=== PATIENT | male | born 1980 | race Caucasian/White ===

== ENCOUNTER 2024-12-23 18:17 | Emergency (ER) | payer BC, SELFPAY ==
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
--- OUTSIDE RECORDS SUMMARY | 2024-12-23 18:19 | XMS_ITS | Patient Health Record ---
Author Organization [facility] Address [address] [place] [address] Care Team Providers Care Repairer Switchgear Name Role Phone Elvis Becker MD Primary Care Provider Unavailab Eliel Tapia Unavailable [phone] Reason For Referral No Information Plan Of Treatment No Information Insurance Providers Payer Name Payer Address Payer Phone Subscriber Number Group Number Insured Name Patient Relationship to Insured Coverage Start Date Coverage End Date Blue Access PPO [id number] [address] [place] [phone] [id number] Alan Clements Self - patient is the insured
--- OUTSIDE RECORDS SUMMARY | 2024-12-23 18:19 | XMS_ITS | Clinical Summary ---
Author Organization [facility] Address [address] [place] [address] Care Team Providers Care Retirement Consultant Name Role Phone Unknown, Provider Primary Care Provider Unavaila ble Source Comments [facility],non-owned Affiliates and Associated Physician Practices is amultiple site organization consisting of ambulatory clinics and hospital sitesin [place], [place], [place] and [place]. This disclosure is being madepursuant to the Care Everywhere program and may not contain all information available regarding this patient. Last updated 18.[facility] Allergies Active Allergy Reactions Criticality Noted Date Comments Codeine Vomiting 03/28/2022 Medications * Be aware that medications may not be up to date on this document. Alwaysverify current medications with the patient. Medication Sig Dispensed Refills Start Date End Date Status acetaminophen (TYLENOL) 500 MG capsule Take 1 (one) capsule by mouth every 6 hours as needed for Pain 60 capsule 03/28/2022 Active ibuprofen (MOTRIN) 600 MG tablet Take 1 (one) tablet by mouth every 6 hours as needed for Pain 30 tablet 03/28/2022 Active cyclobenzaprine (FLEXERIL) 10 MG tablet Take 1 (one) tablet by mouth nightly as needed for Muscle Spasms 15 tablet 03/28/2022 Active Active Problems No known active problems Social History Tobacco Use Types Packs/Day Years Used Date Smoking Tobacco: Former Smokeless Tobacco: Never Alcohol Use Standard Drinks/Week Comments Never 0 (1 standard drink = 0.6 oz pur e alcohol) AUDIT-C Answer Date Recorded Q1: How often do you have a drink containing alcohol? Never 03/28/2022 Q2: How many drinks containi ng alcohol do you have on a typical day when you are drinking? Patient does not drink Q3: How often do you have si x or more drinks on one occasion? 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 PIPELINE TECHNICIAN Height 177.8 cm (5' 10 ) 03/28/2022 1:59 PM CDT Body Mass Index 32.28 12/04/2016 12:50 PM PIPELINE TECHNICIAN Plan of Treatment Health Maintenance Due Date Last Done Comments COLOGUARD (AGES 45-75) - COL ON CA SCREENING 1978 COLON MONITORING 1978 COLONOSCOPY - COLON CA SCREENING 1978 CT COLONOGRAPHY - COLON CA SCREENING 1978 Colorectal Cancer Screening 1978 FIT - COLON CA SCREENING 1978 FLEX SIG - COLON CA SCREENING 1978 LIPID TESTING 1978 HIV SCREENING 1993 HEPATITIS C SCREENING 03/03/1996 DTAP/TDAP/TD VACCINES (1 - Tdap) 1997 HEPATITIS B VACCINE (1 of 3 - 19+ 3-dose series) 1997 COVID-19 VACCINE (2023-2 5 season) 2024 04/07/2021, 03/18/2021 INFLUENZA VACCINE (#1) 2024 DEPRESSION SCREENING 10/10/2024 ZOSTER VACCINE (1 of 2) 2028 HIB VACCINE Aged Out No longer eligi ble based on patient's age to complete this topic HPV VACCINE Aged Out No longer eligi ble based on patient's age to complete this topic MENINGOCOCCAL (Group B) VACCINE SHARED DECISION-MAKING Aged Out No longer eligible based on patient's age to complete this topic MENINGOCOCCAL GROUPS A/C/Y/W VACCINE Aged Out No longer eligible b ased on patient's age to complete this topic PNEUMOCOCCAL VACCINE Aged Out No long er eligible based on patient's age to complete this topic Care Teams Retirement Consultant Relationship Specialty Start Date End Date Unknown, Provider PCP - General 12/04/16
--- OUTSIDE RECORDS SUMMARY | 2024-12-23 18:19 | XMS_ITS | Referral Summary ---
Author Organization [facility] Address [address] [place] [address] Care Team Providers Care Integrated Marketing Manager Name Role Phone Unknown, Provider Primary Care Provider Unavaila ble Source Comments [facility],non-owned Affiliates and Associated Physician Practices is amultiple site organization consisting of ambulatory clinics and hospital sitesin [place], [place], [place] and [place]. This disclosure is being madepursuant to the Care Everywhere program and may not contain all information available regarding this patient. Last updated 18.[facility] Allergies Active Allergy Reactions Criticality Noted Date [...] 102.1 kg (225 lb) 12/04/2016 12:50 PM RECYCLER Height 177.8 cm (5' 10 ) 03/28/2022 1:59 PM CDT Body Mass Index 32.28 12/04/2016 12:50 PM RECYCLER Plan of Treatment Not on file Care Teams Integrated Marketing Manager Relationship Specialty Start Date End Date Unknown, Provider PCP - General 12/04/16
--- OUTSIDE RECORDS SUMMARY | 2024-12-23 18:19 | XMS_ITS | Clinical Summary ---
Author Organization [facility] Address [address] [place] [address] Phone Care Team Providers Care Structural Steel Equipment Erector Name Role Phone Asa Ferguson MD Primary Care Provider [phone] Allergies Active Allergy Reactions Criticality Noted Date Comments Codeine Nausea and Vomiting Low 04/30/2022 Medications oxyCODONE-acetam inophen (PERCOCET) 5-325 mg Oral tablet Take 2 Tabs by mouth every 4 hours as needed for Pain. 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 Gender Identity Not on file Sexual Orientation Not on file Last Filed Vital Signs Vital Sign Reading Time Taken Comments Blood Pressure 215/144 04/30/2022 6:03 PM CDT Pulse 82 04/30/2022 6:05 PM CDT Temperature 36.7 C (98.1 F) 04/30/2022 6:05 PM CDT Respiratory Rate 18 04/30/2022 6:05 PM CDT Oxygen Saturation 100% 04/30/2022 6:05 PM CDT Inhaled Oxygen Concentration - - Weight 103 kg (227 lb) 04/30/2022 2:05 PM CDT Height 180.3 cm (5' 11 ) 04/30/2022 2:05 PM CDT Body Mass Index 31.66 04/30/2022 2:05 PM CDT Plan of Treatment Health Maintenance Due Date Last Done Comments HEPATITIS B VACCINES (1 of 3 - 19+ 3-dose series) 1997 DTAP/TDAP/TD VACCINES (2 - T d or Tdap) 07/10/2014 07/10/2004 COLORECTAL SCREENING 2023 Colorectal Cancer Screening 2023 FIT-DNA Q 3 years 2023 FIT/FOBT Q 1 year 2023 Flex Sig/CT Colonography Q 5 years 2023 INFLUENZA VACCINE (#1) 2024 HPV VACCINES Aged Out No longer eligi ble based on patient's age to complete this topic PNEUMOCOCCAL VACCINE 0-49 YEARS Aged Out No longer eligible based on patient's age to complete this [place] [address] [facility] BLUE ACCESS/TRUE BLUE PPO Care Teams Structural Steel Equipment Erector Relationship Specialty Start Date End Date Asa Ferguson MD [address] [place] [phone] PCP - General Family Practice 04/30/22
--- OUTSIDE RECORDS SUMMARY | 2024-12-23 18:19 | XMS_ITS | Continuity of Care Document ---
Author Organization [facility] Address [address] [place] [address] [address] [place] [address] Phone Care Team Providers Care Supervisor Silvering Department Name Role Phone Vega PT,MPT,ATC, Can Unavailable Unavai lable Procedures Procedure Date Therapeutic Activities Therapeutic Exercise Neuromuscular Re-Ed Manual Therapy Therapeutic Activities Therapeutic Exercise Neuromuscular Re-Ed Manual Therapy Therapeutic Activities Therapeutic Exercise Neuromuscular Re-Ed Therapeutic Activities Neuromuscular Re-Ed Therapeutic Exercise Manual Therapy Therapeutic Activities Neuromuscular Re-Ed Manual Therapy Therapeutic Exercise Therapeutic Activities Therapeutic Exercise Neuromuscular Re-Ed Therapeutic Exercise Therapeutic Activities Neuromuscular Re-Ed Therapeutic Activities Therapeutic Exercise Neuromuscular Re-Ed Therapeutic Activities Neuromuscular Re-Ed Therapeutic Exercise Therapeutic Activities Therapeutic Exercise Neuromuscular Re-Ed Progress Note Therapeutic Exercise Neuromuscular Re-Ed Therapeutic Activities Therapeutic Activities Therapeutic Exercise Neuromuscular Re-Ed Neuromuscular Re-Ed Therapeutic Exercise Therapeutic Activities Therapeutic Activities Neuromuscular Re-Ed Manual Therapy Therapeutic Exercise Therapeutic Activities Manual Therapy Neuromuscular Re-Ed Therapeutic Exercise Therapeutic Exercise Therapeutic Activities Neuromuscular Re-Ed Neuromuscular Re-Ed Therapeutic Activities PT Evaluation High Complexity Therapeutic Exercise Advance Directives Directive Yes / No Effective Date File Name No Information Encounters Encounter Description Practice Location Reason(s) For Visit Diagnoses Date Provider Providers Copied on Encounter [facility] [facility], [place], [place], [id number], tel:[phone] Sharon No Information Sep-2 2 [facility] [place], [place], [place]. Referring Provider: Vineet Holloway, [address], [place], [address]. tel:[phone] [facility], [place], [place], [id number], tel:[phone] Sharon No Information Sep-2 2 Gary Leen. , [place], [place]. Referring Provider: Vineet Holloway, [address], [place], [address]. tel:[phone] [facility] [address], [place], [place], [id number], [place] tel:[phone] Sharon No Information Sep-2 2 Gary Leen. , [place], [place]. Referring Provider: Vineet Holloway, [address], [place], [address]. tel:[phone] [facility], [place], [place], [address], [place] tel:[phone] Sharon No Information Jun- 2 [facility] Can. , [place], [place]. Referring Provider: Vineet Holloway, [address], [place], [address]. tel:[phone] [facility], [place], [place], [id number], [place] tel:[phone] Sharon No Information Sep- 2 Vega Can. , [place], [place]. Referring Provider: Vineet Holloway, [address], [place], [address]. tel:[phone] [facility], [place], [place], [address], [place] tel:[phone] Sharon No Information Jun- 2 Gary Leen. , [place], [place]. Referring Provider: Vineet Holloway, [address], [place], [address]. tel:[phone] [facility], [place], [place], [address], [place] tel:[phone] Sharon No Information Jun-0 2 Juliophylliselle Murphy. . Referring Provider: Vineet Holloway [address], [place], [address]. tel:[phone] [facility], [place], [place], [id number], [place] tel:[phone] Sharon No Information 2 Gary Leen. , [place], [place]. Referring Provider: Vineet Holloway [address], [place], [address]. tel:[phone] [facility], [place], [place], [address], [place] tel:[phone] Sharon No Information 2 [facility] [place]. , [place], [place]. Referring Provider: Vineet Holloway, [address], [place], [address]. tel:[phone] [facility], [place], [place], [id number], [place] tel:[phone] Sharon No Information 2 [place]. , [place], [place]. Referring Provider: Vineet Holloway, [address], [place], [address]. tel:[phone] [facility], [address], [place], [place], [address], [place] tel:[phone] Sharon No Information 2 [place]. , [place], [place]. Referring Provider: Vineet Holloway, [address], [place], [address]. tel:[phone] [facility], [place], [place], [address], [place] tel:[phone] Sharon No Information 2 [place]. , [place], [place]. Referring Provider: Vineet Holloway, [address], [place], [address]. tel:[phone] [facility], [place], [place], [address], [place] tel:[phone] Sharon No Information 2 V[place]. , [place], [place]. Referring Provider: Vineet Holloway, [address], [place], [address]. tel:[phone] [facility], [place], [place], [address], [place] tel:[phone] Sharon No Information 2 [place]. , [place], [place]. Referring Provider: Vineet Bayes, [address], [place], [address]. tel:[phone] [facility], [address], [place], [place], [address], [place] tel:[phone] Sharon No Information 2 [place]. , [place], [place]. Referring Provider: Vineet Holloway [address], [place], [address]. tel:[phone] [facility], [address], [place], [place], [address], [place] tel:[phone] Sharon No Information 2 Vega Can. , [place], [place]. Referring Provider: Vineet Holloway [address], [place], [address]. tel:[phone] [facility], [place], [place], [id number], [place] tel:[phone] Sharon No Information 2 Vega Can. , [place], [place]. Referring Provider: Vineet Holloway [address], [place], [address]. tel:[phone] Family History Family Member Type Diagnosis Age At Onset No Information Payers Payer name Insurance type Covered constitution party ID Authoremily novak(s) [facility] [id number] Social History Type Description Quantity Date Captured Comments Sex Male Smoking Status No Information Chief Complaint And Reason For Visit No Information Reason For Referral Reason For Referral No Information History Of Present Illness Encounter Date Complaint History Of Prese nt Illness No Information Functional Status Date Functional Assessmen t No Information Instructions Date Instruction Additional Infor taylorion Giving encouragement to exercise Related to Overweight Giving encouragement to exercise Related to Overweight Giving encouragement to exercise Related to Overweight Giving encouragement to exercise Related to Overweight Assessments Type Assessment Date No Information Patient Care Teams Name Effective Dates (start - stop) Status Members No Information
--- OUTSIDE RECORDS SUMMARY | 2024-12-23 18:19 | XMS_ITS | Continuity of Care Document ---
Author Name [facility] Organization [facility] Care Team Providers Care Customer Equipment Engineer Name Role Phone [facility] Unavailable Unavailable Problems Combined list of problems from [facility] facilities. It does not include entries that were removed or entered in error. Problem Status Onset Date Problem Type Date of Resolution Comments Source Headache Active Condition [facility] Influenza-like illness Active Condition [facility] Kidney stone (SNOMED CT 84695865) Active Condition [facility] Lesion of lung (SNOMED CT 672140634) Active Condition [facility] Lumbago * (ICD-9-CM 724.2) Active Condition [facility] Old bucket handle tear of medial meniscus (ICD-9-CM 717.0) Active Condition [facility] Thoracic Spine Pain Active Condition [facility] Thyroid nodule Active Condition [facility] Tibial Fractures (ICD-9-CM 823.80) Active Condition [facility] Wrist Pain Active Condition [facility] Allergies, Adverse Reactions, Alerts Combined list of allergies from [facility] facilities. It does not include entries that were removed or entered in error. Substance Category Reaction Severity Reaction type Status Date Reported Comments Source CODEINE Propensity to adverse reactions to drug (finding) active 5 [facility] CODEINE Propensity to adverse reactions to drug (finding) Nausea and vomiting active 4 [facility] Immunizations Combined list of available immunizations from the Department of Defense and [facility] facilities. Immunization Series Date Given Administered By Site Reaction Lot Number CVX Code Drug Meat Pickler Status Comments Source TDAP 2003 115 complet ed [employer] Encounters Combined list of: 1) Encounters from Department of Veterans Affairs facilities going backup to the last 18 months, not all VA inpatient encounters are included; 2) Encounters from the Department of Defense facilities going backup to 280 months. Location Location Details Encounter Type Encounter Number Reason For Visit Attending Provider ADM Date DC Date Status Disposition Source [facility] Outpatient Encounter [id number] 01/10 [facility] Social History Combined list of available smoking, tobacco, and other social history from Department of Defense and Veterans Affairs facilities. Social History Type Response Date Comment Sourc e Tobacco smoking status NHIS QUIT TOBACCO >7 YEARS AGO 05/17/2014 [facility] History of tobacco use QUIT TOBACCO >7 Y EARS AGO 04/17/2007 [facility] History of tobacco use CURRENT NON-TOBAC CO USER-HX OF USE 09/16/2005 [facility]
--- OUTSIDE RECORDS SUMMARY | 2024-12-23 18:19 | XMS_ITS | Patient Health Summary ---
Author Organization [email or web address] Address [address] [place] [address] Care Team Providers Care Juvenile Correctional Officer Name Role Phone Unknown, Provider Primary Care Provider Unavaila ble Note from [facility],non-owned Affiliates and Associated Physician Practices is amultiple site organization consisting of ambulatory clinics and hospital sitesin [place], [place], [place] and [place]. This disclosure is being madepursuant to the Care Everywhere program and may not contain all information available regarding this patient. Last updated 18.[facility] Allergies * Codeine(Vomiting) Medications * Be aware that medications may not be up to date on this document. Alwaysverify current medications with the patient. * acetaminophen (TYLENOL) 500 MG capsule(Started 03/28/2022) Take 1 (one) capsule by mouth every 6 hours as needed for Pain * ibuprofen (MOTRIN) 600 MG tablet(Started 03/28/2022) Take 1 (one) tablet by mouth every 6 hours as needed for Pain * cyclobenzaprine (FLEXERIL) 10 MG tablet(Started 03/28/2022) Take 1 (one) tablet by mouth nightly as needed for Muscle Spasms Active Problems No known active problems Social [...] 102.1 kg (225 lb) 12/04/2016 12:50 PM UNIX ARCHITECT Height 177.8 cm (5' 10 ) 03/28/2022 1:59 PM CDT Body Mass Index 32.28 12/04/2016 12:50 PM UNIX ARCHITECT Procedures * STREP A SCREEN - POINT OF CARE (AMB) STL(Performed 12/04/2016) Performed for Influenza * INFLUENZA A+B - POINT OF CARE (AMB)(Performed 12/04/2016) Performed for Influenza Results * STREP A SCREEN (12/04/2016 12:57 PM UNIX ARCHITECT) Pathologist [facility] Strep A Rapid POCT Negative Negative Strep A Internal Control Present Lot # [id number] Expiration Date 07/29/18 Throat ENTIRE THROAT (SURFACE REGION OF NECK) / Unknown 12/04/2016 12:57 PM UNIX ARCHITECT Gilbert Marie APRN-SEXUAL ABUSE COUNSELLOR LAB - POINT OF CARE ORDERABLES * (ABNORMAL) INFLUENZA A+B - POINT OF CARE (AMB) (12/04/2016 12:57 PM UNIX ARCHITECT) Pathologist [facility] Influenza A Antigen Rapid Negative Negative Influenza B Antigen Rapid Positive(A) Negative Influenza Internal Control NEG/POS NEGATIVE - POSITIVE Influenza Lot Number [id number] Influenza Expiration Date 02/07/19 Other NASOPHARYNGEAL SWAB / Unknown 12/04/2016 12:57 PM UNIX ARCHITECT Gilbert Marie APRN-SEXUAL ABUSE COUNSELLOR LAB - POINT OF CARE ORDERABLES Care Teams Juvenile Correctional Officer Relationship Specialty Start Date End Date Unknown, Provider PCP - General 12/04/16
[2024-12-23 18:27] VITALS: BP 221/130; PULSE 99; RESP 16; TEMP 36.4; O2SAT 98
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
--- OUTSIDE RECORDS SUMMARY | 2024-12-23 19:24 | XMS_ITS | Patient Health Summary ---
Author Organization [facility] Address [address] [place] [address] Care Team Providers Care Advice Nurse Name Role Phone Unknown, Provider Primary Care Provider Unavaila ble Note from [facility],non-owned Affiliates and Associated Physician Practices is amultiple site organization consisting of ambulatory clinics and hospital sitesin [place], [place] and [place]. This disclosure is being madepursuant to the Care Everywhere program and may not contain all information available regarding this patient. Last updated 18.[facility] Allergies * Codeine(Vomiting) Medications * Be aware [...] 102.1 kg (225 lb) 12/04/2016 12:50 PM SUPERVISOR FILES Height 177.8 cm (5' 10 ) 03/28/2022 1:59 PM CDT Body Mass Index 32.28 12/04/2016 12:50 PM SUPERVISOR FILES Procedures * STREP A SCREEN - POINT OF CARE (AMB) STL(Performed 12/04/2016) Performed for Influenza * INFLUENZA A+B - POINT OF CARE (AMB)(Performed 12/04/2016) Performed for Influenza Results * STREP A SCREEN (12/04/2016 12:57 PM SUPERVISOR FILES) Pathologist [facility] Strep A Rapid POCT Negative Negative Strep A Internal Control Present Lot # [id number] Expiration Date 07/29/18 Throat ENTIRE THROAT (SURFACE REGION OF NECK) / Unknown 12/04/2016 12:57 PM SUPERVISOR FILES Gilbert Marie APRN-MEDICAL CODING MANAGER LAB - POINT OF CARE ORDERABLES * (ABNORMAL) INFLUENZA A+B - POINT OF CARE (AMB) (12/04/2016 12:57 PM SUPERVISOR FILES) Pathologist [facility] Influenza A Antigen Rapid Negative Negative Influenza B Antigen Rapid Positive(A) Negative Influenza Internal Control NEG/POS NEGATIVE - POSITIVE Influenza Lot Number [id number] Influenza Expiration Date 02/07/19 Other NASOPHARYNGEAL SWAB / Unknown 12/04/2016 12:57 PM SUPERVISOR FILES Gilbert Marie APRN-MEDICAL CODING MANAGER LAB - POINT OF CARE ORDERABLES Care Teams Advice Nurse Relationship Specialty Start Date End Date Unknown, Provider PCP - General 12/04/16
--- OUTSIDE RECORDS SUMMARY | 2024-12-23 19:24 | XMS_ITS | Continuity of Care Document ---
Author Organization [facility] Address [address] [place] [address] [address] [place] [address] Phone Care Team Providers Care Assistant Auto Center Manager Name Role Phone Vega PT,MPT,ATC, Can Unavailable Unavai lable Procedures Procedure Date Therapeutic Activities Therapeutic Exercise Neuromuscular Re-Ed Manual Therapy Therapeutic Activities Therapeutic Exercise Neuromuscular Re-Ed Manual Therapy Therapeutic Activities Therapeutic Exercise Neuromuscular Re-Ed Therapeutic Activities Neuromuscular Re-Ed Therapeutic Exercise Manual Therapy Therapeutic Activities Manual Therapy Neuromuscular Re-Ed Therapeutic Exercise Therapeutic Activities Neuromuscular Re-Ed Therapeutic Exercise Neuromuscular Re-Ed Therapeutic Exercise Therapeutic Activities Therapeutic Activities Neuromuscular Re-Ed Therapeutic Exercise Therapeutic Exercise Neuromuscular Re-Ed Therapeutic Activities Therapeutic Activities Therapeutic Exercise Neuromuscular Re-Ed Progress Note Therapeutic Exercise Neuromuscular Re-Ed Therapeutic Activities Therapeutic Activities Therapeutic Exercise Neuromuscular Re-Ed Therapeutic Exercise Therapeutic Activities Neuromuscular Re-Ed Therapeutic Activities Neuromuscular Re-Ed Manual Therapy Therapeutic Exercise Therapeutic Activities Manual Therapy Neuromuscular Re-Ed Therapeutic Exercise Neuromuscular Re-Ed Therapeutic Activities Therapeutic Exercise Therapeutic Activities Neuromuscular Re-Ed PT Evaluation High Complexity Therapeutic Exercise Advance Directives Directive Yes / No Effective Date File Name No Information Encounters Encounter Description Practice Location Reason(s) For Visit Diagnoses Date Provider Providers Copied on Encounter [facility] [facility], [place], [place], [id number], tel:[phone] [place] No Information [facility] [place] [place] [place] Referring Provider: Vineet Holloway, [address], [place], [address]. tel:[phone] [facility], [place], [place], [id number], tel:[phone] [place] No Information Sep-2 2 Gary Leen. , [place], [place]. Referring Provider: Vineet Holloway, [address], [place], [address]. tel:[phone] [facility] [address], [place], [place], [id number], [place] tel:[phone] [place] No Information Sep-2 2 Gary Leen. , [place], [place]. Referring Provider: Vineet Holloway, [address], [place], [address]. tel:[phone] [facility], [place], [place], [id number], [place] tel:[phone] [place] No Information Jun- 2 Vega Can. , [place], [place]. Referring Provider: Vineet Holloway, [address], [place], [address]. tel:[phone] [facility], [place], [place], [id number], [place] tel:[phone] [place] No Information Sep- 2 Vega Can. , [place], [place]. Referring Provider: Vineet Holloway, [address], [place], [address]. tel:[phone] [facility], [place], [place], [id number], [place] tel:[phone] [place] No Information Jun- 2 Gary Leen. , [place], [place]. Referring Provider: Vineet Holloway, [address], [place], [address]. tel:[phone] [facility], [place], [place], [id number], [place] tel:[phone] [place] No Information Jun-0 2 Juliophylliselle Murphy. . Referring Provider: Vineet Holloway [address], [place], [address]. tel:[phone] [facility], [place], [place], [id number], [place] tel:[phone] [place] No Information 2 Gary Leen. , [place], [place]. Referring Provider: Vineet Holloway [address], [place], [address]. tel:[phone] [facility], [place], [place], [address], [place] tel:[phone] [place] No Information 2 [place]. , [place], [place]. Referring Provider: Vineet Holloway, [address], [place], [address]. tel:[phone] [facility], [place], [place], [id number], [place] tel:[phone] [place] No Information 2 [place]. , [place], [place]. Referring Provider: Vineet Holloway, [address], [place], [address]. tel:[phone] [facility], [address], [place], [place], [id number], [place] tel:[phone] [place] No Information 2 [place]. , [place], [place]. Referring Provider: Vineet Holloway, [address], [place], [address]. tel:[phone] [facility], [place], [place], [id number], [place] tel:[phone] [place] No Information 2 [place]. , [place], [place]. Referring Provider: Vineet Holloway, [address], [place], [address]. tel:[phone] [facility], [place], [place], [id number], [place] tel:[phone] [place] No Information 2 [place]. , [place], [place]. Referring Provider: Vineet Holloway, [address], [place], [address]. tel:[phone] [facility], [place], [place], [address], [place] tel:[phone] [place] No Information 2 [place]. , [place], [place]. Referring Provider: Vineet Bayes, [address], [place], [address]. tel:[phone] [facility], [address], [place], [place], [id number], [place] tel:[phone] [place] No Information 2 [place]. , [place], [place]. Referring Provider: Vnieet Holloway [address], [place], [address]. tel:[phone] [facility], [address], [place], [place], [id number], [place] tel:[phone] [place] No Information 2 [place]. , [place], [place]. Referring Provider: Vineet Holloway [address], [place], [address]. tel:[phone] [facility], [place], [place], [id number], [place] tel:[phone] [place] No Information 2 V[place] Can. , [place], [place]. Referring Provider: Vineet Holloway [address], [place], [address]. tel:[phone] Family History Family Member Type Diagnosis Age At Onset No Information Payers Payer name Insurance type Covered green party ID Authoremily novak(s) [facility] [id number] Social History Type Description Quantity Date Captured [...]
--- OUTSIDE RECORDS SUMMARY | 2024-12-23 19:24 | XMS_ITS | Clinical Summary ---
Author Organization [facility] Address [address] [place] [address] Care Team Providers Care Mat Inspector Name Role Phone Unknown, Provider Primary Care Provider Unavaila ble Source Comments [facility],non-owned Affiliates and Associated Physician Practices is amultiple site organization consisting of ambulatory clinics and hospital sitesin [place], [place], [place] and [place]. This disclosure is being madepursuant to the Care Everywhere program and may not contain all information available regarding this patient. Last updated 18.[facility] Allergies Active Allergy Reactions Criticality Noted Date [...] 102.1 kg (225 lb) 12/04/2016 12:50 PM CRIME SCENE EXAMINER Height 177.8 cm (5' 10 ) 03/28/2022 1:59 PM CDT Body Mass Index 32.28 12/04/2016 12:50 PM CRIME SCENE EXAMINER Plan of Treatment Health Maintenance Due Date [...] age to complete this topic Care Teams Mat Inspector Relationship Specialty Start Date End Date Unknown, Provider PCP - General 12/04/16
--- OUTSIDE RECORDS SUMMARY | 2024-12-23 19:24 | XMS_ITS | Data Portability ---
Author Organization [facility], [employer] Address [address] [place] [address] Assessment Encounter Date Assessment Date Assessment LastModified by Organization Details LastModified Time 03/22/2017 03/22/2017 New patient presented for admission to the practice. Studies ordered as below. Discussed plan with patient, who expressed understanding . Follow up as noted below. [email or web address] Not available 03/22/2017 15:55:12 01/02/2018 01/02/2018 Patient presented for follow up. Studies ordered as below. Discussed plan with patient/cristian lesterer, who expressed understanding . Follow up as noted below. New patient presented for admission to the practice. Studies ordered as below. Discussed plan with patient, who expressed understanding . Follow up as noted below. [email or web address] Not available 01/02/2018 18:49:52 Plan of Treatment Reminders Order Date Submit Date Provider Last Modified By Organization Details Last Modified Time Details Appointments None recorded. Lab TSH, serum or plasma 2017 018 [email or web address] [facility], [address] [place], [address], 8 10:30:37 urinalysis , dipstick 2017 018 [facility], [address], [place], [address], 3 05:32:10 CBC 2017 018 [email or web address] [facility], [address], [address], 8 10:30:35 CMP, serum or plasma 2017 018 [facility], [address] [place], [address], 8 10:30:36 HLA-B27 related Ag 2017 018 [facility], [address], [address], 8 10:30:36 erythrocyt e sedimentat ion rate by westergren method 2017 018 [email or web address] [facility], [address], [address], 8 10:30:36 ZAHRA (antinucle ar antibodies ) panel, serum 2017 018 [email or web address] [facility], [address], [address], 8 10:30:36 rheumatoid factor, qualitativ e, serum 2017 018 [email or web address], [address] [place], [address], 8 10:30:36 ccp Ab, serum 2017 018 [email or web address], [address] [place], [address], 8 10:30:36 vitamin D, 25-hydroxy , total, serum 2017 018 [email or web address], [address], [address], 8 10:30:37 lipid panel, serum 2017 018 [facility], [address] [place] [place], [address], 8 10:30:36 urinalysis , dipstick 2016 017 [facility], [address], [place], [address], 7 16:14:55 CBC 2016 017 [facility], [address] [place], [address], 7 08:25:16 CMP, serum or plasma 2016 017 [facility], [address], [address], 7 08:25:16 erythrocyt e sedimentat ion rate by westergren method 2016 017 [facility], [address] [place], [address], 7 08:25:16 ZAHRA (antinucle ar antibodies ) panel, serum 2016 017 [facility], [address] [place], [address], 7 08:25:16 rheumatoid factor, qualitativ e, serum 2016 017 [facility], [address] [place], [address], 7 08:25:16 ccp Ab, serum 2016 017 [facility], [address] [place], [address], 7 08:25:16 lipid panel, serum 2016 017 [facility], [address] [place], [address], 7 08:25:16 Referral pulmonolog ist referral 2017 018 [email or web address] Marte MD, [address] [place], [address], 8 08:48:26 physical therapy back referral 2017 018 [email or web address] [facility], [address], [place], [address], 8 08:48:25 optometris t referral 2017 018 [email or web address] [facility], [address] , [place], [address], 8 08:48:25 physical therapy back referral 2016 017 [email or web address] [facility], [address], [place], [address], 7 08:19:03 optometris t referral 2016 017 [email or web address] [facility], [address] , [place], [address], 7 08:19:03 Procedures None recorded. Surgeries None recorded. Imaging US, thyroid 2017 018 [email or web address] Not available 8 09:08:14 XR, lumbosacra l spine, 2 or 3 view 2017 018 [email or web address] Not available 8 09:08:14 electrocar diogram 2016 017 [facility], [address], [place], [address], 7 10:18:02 XR, lumbosacra l spine, 2 or 3 view 2016 017 [email or web address] Not available 7 08:26:34 Medication Orders Voltaren 1 % topical gel 2017 018 [id number], [address], [place], [id number], 8 19:01:00 tramadol 50 mg tablet 2016 017 [facility], [address], [place], [place], [id number], 7 15:59:18 Voltaren 1 % topical gel 2016 017 [facility], [address], [place], [place], [phone], 7 15:59:50 Patient TargetsNo targets recorded. Patient Instructions Encounter Date Encounter Id Patient Instructions Last Modified By Organization Details Last Modified Time 03/22/2017 [id number] When You Want to Lose Weight: Care Instructions OMAR Not available 03/24/2017 11:58:43 snoring: care instructions OMAR Not available 03/24/2017 11:58:53 home sleep testing* [email or web address] Not available 04/19/2017 08:21:24 01/02/2018 [id number] thyroid nodules: care instructions [email or web address] Not available 01/02/2018 18:59:45 When You Want to Lose Weight: Care Instructions [email or web address] Not available 01/02/2018 18:59:44 sleep apnea: car e instructions [email or web address] Not available 01/02/2018 18:59:45 Reason for Referral Referring Physician: Ju Caicedo, Internal Medicine, Encounter Date: 03/22/2017 Flow Coordinator Referral for Scr eening procedure Referring Physician: Ju Caicedo, Internal Medicine, Encounter Date: 03/22/2017 Referring Physician: Ju Caicedo, Internal Medicine, Encounter Date: 01/02/2018 Flow Coordinator Referral for Scr eening procedure Referring Physician: Mounir Sascha, Internal Medicine, Encounter Date: 01/02/2018 Digital Research Analyst Referral for O bstructive sleep apnea syndrome Referring Physician: Ju Caicedo, Internal Medicine, Encounter Date: 01/02/2018 Results Created Date Observation Date Name Description Value Unit Range Abnormal Flag Note LastModifiedBy Organization Detail LastModifiedTime 03/22/20 17 03/22/2017 urina lysis , dipst ick Leukocytes Negati ve Not Available [facility], [facility] [address], [place], [address], 03/22/2017 15:56:03 03/22/20 17 03/22/2017 urina lysis , dipst ick Nitrite negati ve Not Available [facility], [facility] [address], [place], [address], 03/22/2017 15:56:03 03/22/20 17 03/22/2017 urina lysis , dipst ick Urobilinogen .2 Not Available [facility], [facility] [address], [place], [address], 03/22/2017 15:56:03 03/22/20 17 03/22/2017 urina lysis , dipst ick Protein Negati ve Not Available [facility], [facility] [address], [place], [address], 03/22/2017 15:56:03 03/22/20 17 03/22/2017 urina lysis , dipst ick pH 5.0 Not Available [facility], [facility] [address], [place], [address], 03/22/2017 15:56:03 03/22/20 17 03/22/2017 urina lysis , dipst ick Blood Negati ve Not Available [facility], [facility] [address], [place], [address], 03/22/2017 15:56:03 03/22/20 17 03/22/2017 urina lysis , dipst ick Specific [place] 1.015 Not Available [facility], [facility] [address], [place], [address], 03/22/2017 15:56:03 03/22/20 17 03/22/2017 urina lysis , dipst ick Ketone Negati ve Not Available [facility], [facility] [address], [place], [address], 03/22/2017 15:56:03 03/22/20 17 03/22/2017 urina lysis , dipst ick Bilirubin Negati ve Not Available [facility], [facility] [address], [place], [address], 03/22/2017 15:56:03 03/22/20 17 03/22/2017 urina lysis , dipst ick Glucose Negati ve Not Available [facility], [facility] [address], [place], [address], 03/22/2017 15:56:03 03/22/20 17 03/22/2017 urina lysis , dipst ick Appearance Clear Not Available [facility], [facility] [address], [place], [address], 03/22/2017 15:56:03 03/22/20 17 03/22/2017 urina lysis , dipst ick Color Yellow Not Available [facility], [facility] [address], [place], [address], 03/22/2017 15:56:03 03/23/20 17 03/22/2017 duke danielle am No observ ation record ed. [facility], [facility] [address], [place], [address], 01/02/2018 19:00:42 04/22/20 17 03/31/2017 home sleep testi ng* No observ ation record ed. [facility] [address], [place], [address], 01/02/2018 19:00:41 04/22/20 17 03/31/2017 home sleep testi ng* No observ ation record ed. [facility] [address], [place], [address], 01/02/2018 19:00:41 Result Notes None recorded. Problems Name Problem SNOMED Code Status Onset Date Resolution Date Notes Provider Name and Address Organization Details Recorded Time [facility] 14461257 [facility] 15:19:[facility] Overweight 147350686 Active 2016 Ju Caicedo MD [address], [place], [address], [facility] 7 15:53:15 Family history of coronary arterioscleros is 303627106 Active 2016 Ju Caicedo MD [address], [place], [address], [facility] 7 15:53:33 Chronic back pain 019552574 Active 2016 Ju Caicedo MD [address], [place], [address], [facility] 7 15:54:12 Obstructive sleep apnea syndrome 83593844 Active 2017 Ju Caicedo MD [address], [place], [address], [facility] 8 18:55:54 Thyroid nodule 438343813 Active 2017 Ju Caicedo MD [address], [place], [address], [facility] 8 18:55:56 Problem Notes None recorded. Procedures Surgical History None recorded. Imaging Results Imaging Date Name Status LastModified by Organization Details LastModified Time 03/22/2017 electrocardiogram completed [facility], [facility] [address], [place], [address], 01/02/2018 19:00:42 03/31/2017 home sleep testing* [facility] [address], [place], [address], 01/02/2018 19:00:41 03/31/2017 home sleep testing* [facility] [address], [place], [address], 01/02/2018 19:00:41 Procedure Notes None recorded. Medical Equipment None Reported. Allergies Allergen ID Allergen Name Allergen Category Reaction Reaction Severity Criticality Documentation Date Start Date Code Code System Note Provider Name and Address Organization Details Recorded Time 5512 codeine medicatio n nausea Not available Not available 03/22/2017 2670 RxNorm Mckayla Armstrong [facility] 7 15:18:59 Medications Name Sig Start Date Stop Date Status Note LastModified by Organization Details LastModified Time tramadol 50 mg tablet Take 1 tablet every 8 hours by oral route. 017 active Not Available Not Available Not Avai lable Voltaren 1 % topical gel APPLY 2 GRAM TO THE AFFECTED AREA(S) BY TOPICAL ROUTE 4 TIMES PER DAY 018 active Not Available Not Available Not Avai lable Vitals Date Recorded Body weight Body mass index (BMI) Body height Respiratory rate Body temperature Heart rate Systolic blood pressure Diastolic blood pressure Provider Name and Address Organization Details Last Updated DateTime 7 378082. 06 g 32.7 kg/m2 177.8 cm 18 /min 98.3 [degF] 85 /min 142 mm[Hg] 92 mm[Hg] Mckayla Armstrong [facility] 7 15:19:17 Date Recorded Body height Respiratory rate Body mass index (BMI) Body weight Body temperature Heart rate Provider Name and Address Organization Details Last Updated DateTime 8 177.8 cm 18 /min 32.7 kg/m2 147211. 06 g 98.1 [degF] 77 /min Mckayla Armstrong [facility] 8 18:44:03 Date Recorded Systolic blood pressure Diastolic blood pressure Provider Name and Address Organization Details Last Updated DateTime 01/02/2018 132 mm[Hg] 79 mm[Hg] Ju Caicedo MD [address], [place], [address], [facility] 01/02/2018 18:55:44 Social History Question Answer Notes LastModified by Organizat ion Details LastModified Time Tobacco Smoking Status Never Smoker Mckayla Armstrong [facility], [facility] 03/22/2017 15:19:04 What Is Your Level Of Alcohol Consumption? None [email or web address] Information not available 03/22/2017 Are You Currently Employed? Yes Information not available 03/22/2017 Which Illicit Or Recreational Drugs Have You Used? No Information not available 03/22/2017 Live Alone Or With Others? With Others [email or web address] Information not available 03/22/2017 Marital Status Informatio n not available 03/22/2017 What Was The Date Of Your Most Recent Tobacco Screening? 01/02/2018 Information not available 05/02/2019 Sex: Unknown Functional Status Question Answer Note LastModified by Organization D etails LastModified Time Are you able to care for yourself? Yes Information n ot available 03/22/2017 Mental Status None recorded. Family History Relationship Description Onset Age of this Age Resolved Age Notes LastModified by Organization Details LastModified Time Mother Overweight [email or web address] Not availa ble 03/22/2017 15:50:41 Father Pulmonary fibroplasia 57 [email or web address] Not available 03/10 15:51:22 Father Coronary arterioscler osis 40 [email or web address] Not available 2016 15:51:35 Medical History No medical history recorded. Past Encounters Encounter ID Performer Location Encounter Start Date Encounter Closed Date Diagnosis/Indication Diagnosis SNOMED-CT Code Diagnosis ICD10 Code Diagnosis Note [id number] Ju Caicedo MD [facility], [facility] [address] [place] [address] 03/22/2017 14:49:58 03/22/2017 16:12:58 Chronic back pain 130566370 G89.29 Family his tory of coronary arteriosclerosis 252436292 Z82.49 Overweight 042600169 E66 .3 Screening procedure 2012 5006 Z13.9 Snoring 06374066 R06.83 Multiple joint pain 3567 8005 M25.50 Active or passive immunization 818690019 Z23 [id number] Ju Caicedo MD [facility], [facility] [address] [place] [address] 01/02/2018 18:25:39 01/02/2018 19:04:38 Chronic back pain 411265711 G89.29 Overweight 747665995 E66 .3 Screening procedure 2012 5006 Z13.9 Multiple joint pain 3567 8005 M25.50 Active or passive immunization 785575576 Z23 Obstructiv e sleep apnea syndrome 16217426 G47.33 Thyroid nodule 049895727 E04.1 Health Concerns Section Related Observation LastModified by Organization Detai ls LastModified Time None Recorded Concern Status LastModified by Organization Details LastModified Time None Recorded Advance Directives Directive None Recorded Payers Encounter Date Sequence Insurance Name Policy Number Policy Rowley Covered Member ID Rowley Member ID Guarantor Name 03/22/2017 1 [facility] [place] [id number] Alan Clements [id number] Clements 01/02/2018 1 [facility] [id number] Alan Clements [id number] [address] [place] Notes Date Note Type Note Provider Name and Address Organization Details Recorded Time 01/02/2018 text/html Hypertension F/UReported bypatient.Medicati ons:taking medications as directed; no side effects from medication Lifestyle:regular exercise; limiting/avoiding salt; compliant with low salt diet Associated Symptoms:no dizziness; no lightheadedness; no chest pain; no shortness of breath; no palpitations; no edema; no calf pain with exertion; no headache Ju Caicedo MD [address], [place], [address], [facility] 01/02/2018 19:02:00
--- OUTSIDE RECORDS SUMMARY | 2024-12-23 19:24 | XMS_ITS | Clinical Summary ---
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
--- OUTSIDE RECORDS SUMMARY | 2024-12-23 19:24 | XMS_ITS | Continuity of Care Document ---
Author Name [facility] Organization [facility] Care Team Providers Care Surface Logging Systems Logger Name Role Phone [facility] Unavailable Unavailable Problems Combined list of problems from [facility] facilities. It does not include entries that were removed or entered in error. Problem Status Onset Date Problem Type Date of Resolution Comments Source Headache Active Condition [facility] Influenza-like illness Active Condition [facility] Kidney stone (SNOMED CT 26199711) Active Condition [facility] Lesion of lung (SNOMED CT 634164838) Active Condition [facility] Lumbago * (ICD-9-CM 724.2) Active Condition [facility] Old bucket handle tear of medial meniscus (ICD-9-CM 717.0) Active Condition [facility] Thoracic Spine Pain Active Condition [facility] Thyroid nodule Active Condition [facility] Tibial Fractures (ICD-9-CM 823.80) Active Condition [facility] Wrist Pain Active Condition [facility] Allergies, Adverse Reactions, Alerts Combined list of allergies from [facility] facilities. It does not include entries that were removed or entered in error. Substance Category Reaction Severity Reaction type Status Date Reported Comments Source CODEINE Propensity to adverse reactions to drug (finding) active 5 [facility] CODEINE Propensity to adverse reactions to drug (finding) Nausea and vomiting active 4 [facility] Immunizations Combined list of available immunizations from the Department of Defense and Veterans [facility] facilities. Immunization Series Date Given Administered By Site Reaction Lot Number CVX Code Drug Materials Coordinator Status Comments Source TDAP 2003 115 complet [...] ADM Date DC Date Status Disposition Source [facility] Outpatient Encounter [id number] 01/10 [facility] Social History Combined list of available smoking, tobacco, and other social history from Department of Defense and Veterans Affairs facilities. Social History Type Response Date Comment Sourc e Tobacco smoking status NHIS QUIT TOBACCO >7 YEARS AGO 05/17/2014 [facility] History of tobacco use QUIT TOBACCO >7 Y EARS AGO 04/17/2007 [facility] History of tobacco use CURRENT NON-TOBAC CO USER-HX OF USE 09/16/2005 [facility]
--- OUTSIDE RECORDS SUMMARY | 2024-12-23 19:24 | XMS_ITS | Referral Summary ---
Author Organization [facility] Address [address] [place] [address] Care Team Providers Care Hospital Nurse Liaison Name Role Phone Unknown, Provider Primary Care Provider Unavaila ble Source Comments [facility],non-owned Affiliates and Associated Physician Practices is amultiple site organization consisting of ambulatory clinics and hospital sitesin [place], [place], [place] and [place]. This disclosure is being madepursuant to the Care Everywhere program and may not contain all information available regarding this patient. Last updated 18.[facility] Allergies Active Allergy Reactions Criticality Noted Date [...] 102.1 kg (225 lb) 12/04/2016 12:50 PM BALLISTICS TESTER Height 177.8 cm (5' 10 ) 03/28/2022 1:59 PM CDT Body Mass Index 32.28 12/04/2016 12:50 PM BALLISTICS TESTER Plan of Treatment Not on file Care Teams Hospital Nurse Liaison Relationship Specialty Start Date End Date Unknown, Provider PCP - General 12/04/16
--- OUTSIDE RECORDS SUMMARY | 2024-12-23 19:24 | XMS_ITS | Data Portability ---
Author Organization [employer], [facility] Address [address] [address] Assessment No assessment recorded. Plan of Treatment Reminders Order Date Submit Date Provider Last Modified By Organization Details Last Modified Time Details Appointments None recorded. Lab None recorded. Referral None recorded. Procedures None recorded. Surgeries None recorded. Imaging None recorded. Medication Orders diclofenac sodium 75 mg tablet,norma yed release 2021 [id number], [address] [facility], [place], [place], [phone], 2 17:10:46 Patient TargetsNo targets recorded. Patient InstructionsNo instructions recorded. Reason for Referral None Reported. Problems No Known Problems Medical Equipment None Reported. Allergies Allergen ID Allergen Name Allergen Category Reaction Reaction Severity Criticality Documentation Date Start Date Code Code System Note Provider Name and Address Organization Details Recorded Time 52086 codeine medicatio n Not available Not available Not available 04/26/2022 2670 [facility] Marcos mistry, [employer] 2 16:30:45 Medications Name Sig Start Date Stop Date Status Note LastModified by Organization Details LastModified Time cyclobenzaprine 10 mg tablet TAKE 1 TABLET BY MOUTH EVERY 8 HOURS NEEDED FOR SPASM active Not Available Not Available No t Available amlodipine 5 mg tablet active Not Available Not Available Not Available diclofenac sodium 75 mg tablet,delayed release TAKE 1 TABLET BY MOUTH TWICE DAILY active Not Available Not Available No t Available Vitals Date Recorded Body height Body mass index (BMI) Body weight Heart rate Systolic blood pressure Diastolic blood pressure Provider Name and Address Organization Details Last Updated DateTime 2 180.34 cm 30.7 kg/m2 77641.3 2 g 90 /min 199 mm[Hg] 126 mm[Hg] Marcos Yan [facility], [facility] 2 16:30:36 Date Recorded Body height Heart rate Provider Name and Address Organization Details Last Updated DateTime 05/31/2022 180.34 cm 62 /min Sury Lazo [facility], [facility] 05/31/2022 16:53:14 Date Recorded Body height Body mass index (BMI) Body weight Provider Name and Address Organization Details Last Updated DateTime 07/13/2022 180.34 cm 30.7 kg/m2 92535.32 g [facility] 07/13/2022 16:10:02 Social History None recorded. Functional Status None recorded. Mental Status None recorded. Family History Nothing Reported. Medical History Condition Response Other Cancer N HIV or AIDS N Coronary Artery Disease N Gout N Kidney Stones N Hyperthyroidism N Breast Cancer N Head Trauma/Injury N Hernia N Lung Cancer N Hypothyroidism N Lung Disease N Depression N COPD N Blood Clots N Pacemaker N Parkinson's N Anxiety Disorder N Arthritis N Alcohol / Substance Abuse N Kidney Cancer N Cancer N Melanoma N Stroke N Leg or Foot Ulcers N Neck Injury N High Cholesterol N Skin Cancer N Liver Disease N Rheumatoid Arthritis N Fibromyalgia N Headaches N Concussion Y Kidney Disease N Heart Problems N Scoliosis N Chronic use of Pain Medication N Prostate Cancer N Migraines N Thyroid Problems N Alzheimers N Autoimmune Disorder N Anemia N Multiple Sclerosis N Tendon Tear N Ulcers N Heart Attack (ID) N Osteopenia N Diabetes N Bleeding Disorder N Seizures/Epilepsy N Cardiac Stent N Tuberculosis N A-FIB N Lymphoma N Urinary Tract Infection N Back Problems N Diverticulitis N Asthma N Lupus N Peripheral Vascular Disease N Sleep Disorder N GERD/Reflux N Hepatitis N Aneurysm N Thyroid Cancer N Heart Disease N Pulmonary Embolism N Hypertension N Osteoporosis N Past Encounters Encounter ID Performer Location Encounter Start Date Encounter Closed Date Diagnosis/Indication Diagnosis SNOMED-CT Code Diagnosis ICD10 Code Diagnosis Note [id number] [facility] [address] [facility] ,[address] [facility] [address] 04/26/2022 15:54:51 04/27/2022 08:09:21 Postconcussion syndrome 77147809 F07.81 [id number] [facility] [address] [place] [address] 05/31/2022 16:19:42 06/01/2022 11:47:55 [id number] [facility] [address] ,[address] [place] [address] 07/13/2022 15:51:34 07/14/2022 07:53:25 Health Concerns Section Related Observation LastModified by Organization Detai ls LastModified Time None Recorded Concern Status LastModified by Organization Details LastModified Time None Recorded Advance Directives Directive None Recorded Payers Encounter Date Sequence Insurance Name Policy Number Policy Rowley Covered Member ID Rowley Member ID Guarantor Name 04/26/2022 1 [place] [id number] Alan Clements [id number] Alan Clements 05/31/2022 1 [place] [id number] Alan Clements [id number] Alan Clements 07/13/2022 1 [place] [id number] Alan Clements [id number] Alan Clements
[2024-12-23 19:31] VITALS: BP 220/136; PULSE 73; RESP 18; O2SAT 100
[2024-12-23] MEDS: HYDROcodone/acetaminophen (*CRX) 5-325 MG TABLET 1 TAB PO (19:49)
--- NOTE | 2024-12-23 19:51 | ECG_ITS ---
Test Date: 2024-12-23 20:08:17 Measurements Intervals [place] Rate: 81 P: 36 ID: 140 QRS: 5 QRSD: 90 T: 71 QT: 358 QTc: 417 Interpretive Statements SINUS RHYTHM MINIMAL VOLTAGE CRITERIA FOR LVH, CONSIDER NORMAL VARIANT [MEETS CRITERIA IN ONE OF: R(aVL), S(V1), R(V5), R(V5/V6)+S(V1)] NONSPECIFIC T-WAVE ABNORMALITY No previous ECG available for comparison Electronically Signed On 12-24-2024 15:13:47 CDT by Efrain Barajas M.D.
[2024-12-23 20:15] VITALS: BP 202/124; PULSE 86; RESP 16; O2SAT 98
[2024-12-23] MEDS: cloNIDine HCL 0.1 MG TABLET PO (20:16)
[2024-12-23 20:27] LABS: Basophils Percent Auto 0.4 % (0.2-1.2); Eosinophils Absolute Auto 0.1 K/mm3 (0-0.3); Eosinophils Percent Auto 1.6 % (0-4.4); Hematocrit 40.4 % (42.0-52.0); Hemoglobin 13.9 g/dL (14.0-18.0); Immature Granulocyte Absolute 0.01 K/mm3 (0.00-0.031); Immature Granulocyte Percent A 0.1 % (0-0.5); Lymphocytes Absolute Auto 2.37 K/mm3 (0.9-3.2); Lymphocytes Percent Auto 28.3 % (18.3-44.2); Mean Corpuscular HGB Conc 34.4 g/dl (32-36); Mean Corpuscular Hemoglobin 29.3 pg (26-34); Mean Corpuscular Volume 85.1 fl (80-100); Mean Platelet Volume 9.7 fl (7.4-10.4); Monocytes Absolute Auto 0.8 K/mm3 (0.1-0.6); Monocytes Percent Auto 9.8 % (2.6-8.5); Neutrophils Percent Auto 59.8 % (45.5-73.1); Platelet Count Result 242 k/mm3 (150-375); Red Blood Count 4.75 M/mm3 (4.6-6.20); White Blood Count 8.4 K/mm3 (4.5-10.0)
[2024-12-23 20:40] LABS: Alanine Aminotransferase 22 U/L (6-50); Albumin Level 4.1 g/dL (3.5-5.1); Alkaline Phosphatase 86 U/L (38-126); Anion Gap 9 mmol/L (4-12); Aspartate Amino Transferase 22 U/L (17-59); Bilirubin,Total 0.4 mg/dL (0.2-1.3); Blood Urea Nitrogen 17 mg/dL (9-20); Carbon Dioxide 26 mmol/L (22-30); Chloride 105 mmol/L (98-107); Estimated CRCL calculation 61 ml/min; Estimated Glomerular Filt Rate 45; Glucose 97 mg/dL (65-110); Potassium 4.2 mmol/L (3.4-5.0); Sodium 140 mmol/L (137-145)
[2024-12-23 21:16] VITALS: BP 190/128; PULSE 74; RESP 16; O2SAT 97
[2024-12-23] MEDS: SODIUM CHLORIDE 0.9% IV 1,000 ML 999 ML IV CONT (21:16)
[2024-12-23 21:46] LABS: Add Urine Microscopic? YES; Appearance Urine Clear (Clear); Bacteria Urine None Seen /hpf; Bilirubin Urine Negative (Negative); Blood Urine Negative (Negative); Color Urine Yellow (Yellow); Glucose Urine UA Negative (Negative); Ketones Urine Negative (Negative); Leukocyte Esterase Ur Negative LEU/UL (Negative); Nitrate Urine Negative (Negative); Non Pathogenic Casts 0-2; Protein Urine Trace mg/dL (Negative); RBC Urine 0-2 /hpf (0-2); Specific Grav Ur 1.016 (1.001-1.035); Squamous Epithelial Cell Urine None Seen /hpf (Few); Urobilinogen Urine 0.2 mg/dL (<2.0); WBC Urine 0-5 /hpf (0-3); pH Urine 6.5 (5.0-9.0)
[2024-12-23 22:09] VITALS: BP 164/112
== END 2024-12-23 23:03 | disposition home or self-care (01) ==
PROVIDERS: Emergency Provider Student in an Organized Health Care Education/Training Program
DX: S19.9XXA Unspecified injury of neck, initial encounter (principal); E04.1 Nontoxic single thyroid nodule; N17.9 Acute kidney failure, unspecified; I10 Essential (primary) hypertension; Z79.899 Other long term (current) drug therapy; Y04.8XXA Assault by other bodily force, initial encounter; R94.31 Abnormal electrocardiogram [ECG] [EKG]
CPT/HCPCS: 36415; 70450; 72125; 80053; 81001; 85025; 93005; 96360; 99284; A9270; J7030

== ENCOUNTER 2025-03-31 18:40 | Emergency (ER) | payer BC, SELFPAY ==
--- NOTE | ~2025-03-31 | CT_ITS ---
CT brain wo con Ordering provider: Rommel Ye MD History: 45 years Male with . headache . Comparison: December 23, 2024 Technique: CT of the head without contrast. Radiation reduction technique utilized.The dose-length pr oduct was 605.33 mGy-cm. FINDINGS: BRAIN PARENCHYMA AND CSF SPACES: No midline shift, mass effect or hemorrhage. The brain parenchyma a nd CSF spaces are otherwise normal. VISUALIZED PARANASAL SINUSES: Well aerated. MASTOIDS: Well aerated. BONES: The bones appear intact. SOFT TISSUES: Visualized nasopharynx is normal. Superficial soft tissues are normal. IMPRESSION: No acute intracranial findings. Reviewed, dictated and finalized at location A.
[2025-03-31 18:43] VITALS: BP 183/128; PULSE 97; RESP 18; TEMP 36.7; O2SAT 100
[2025-03-31] MEDS: PROCHLORPERAZINE EDISYLATE 10 MG/2 ML VIAL IV PUSH (21:09)
[2025-03-31] MEDS: diphenhydrAMINE HCl INJ 50 MG/ML VIAL IV PUSH (21:09)
[2025-03-31] MEDS: KETOROLAC 15 MG/ML VIAL (*BKC) IV PUSH (21:09)
[2025-03-31] MEDS: SODIUM CHLORIDE 0.9% IV 1,000 ML 999 ML IV CONT (21:10)
[2025-03-31 21:15] LABS: Basophils Percent Auto 0.3 % (0.2-1.2); Hematocrit 45.1 % (42.0-52.0); Hemoglobin 15.3 g/dL (14.0-18.0); Immature Granulocyte Absolute 0.06 K/mm3 (0.00-0.031); Immature Granulocyte Percent A 0.4 % (0-0.5); Lymphocytes Absolute Auto 0.74 K/mm3 (0.9-3.2); Lymphocytes Percent Auto 5.4 % (18.3-44.2); Mean Corpuscular HGB Conc 33.9 g/dl (32-36); Mean Corpuscular Volume 85.4 fl (80-100); Mean Platelet Volume 9.2 fl (7.4-10.4); Monocytes Absolute Auto 0.9 K/mm3 (0.1-0.6); Monocytes Percent Auto 6.5 % (2.6-8.5); Neutrophils Percent Auto 87.4 % (45.5-73.1); Platelet Count Result 258 k/mm3 (150-375); Red Blood Count 5.28 M/mm3 (4.6-6.20); Red Cell Distribution Width 12.5 % (11.5-14.5); White Blood Count 13.7 K/mm3 (4.5-10.0)
[2025-03-31 21:25] LABS: Alanine Aminotransferase 19 U/L (6-50); Albumin Level 4.6 g/dL (3.5-5.1); Alkaline Phosphatase 94 U/L (38-126); Anion Gap 12 mmol/L (4-12); Aspartate Amino Transferase 27 U/L (17-59); Bilirubin,Total 0.8 mg/dL (0.2-1.3); Blood Urea Nitrogen 16 mg/dL (9-20); Calcium 9.1 mg/dL (8.4-10.2); Carbon Dioxide 23 mmol/L (22-30); Chloride 102 mmol/L (98-107); Estimated CRCL calculation 72 ml/min; Estimated Glomerular Filt Rate 57; Glucose 133 mg/dL (65-110); Potassium 3.8 mmol/L (3.4-5.0); Sodium 137 mmol/L (137-145)
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
[2025-03-31 22:45] VITALS: BP 163/95; PULSE 95; RESP 19; TEMP 37.2; O2SAT 96
[2025-03-31 22:55] VITALS: BP 163/95; PULSE 95; RESP 19; TEMP 37.2; O2SAT 96
== END 2025-03-31 22:57 | disposition home or self-care (01) ==
PROVIDERS: Emergency Provider Emergency Medicine
DX: R51.9 Headache, unspecified (principal)
CPT/HCPCS: 36415; 70450; 80053; 85025; 96361; 96374; 96375; 99284; J0780; J1200; J1885; J7030